=== PATIENT | female | born 1945 | race Caucasian/White ===

== ENCOUNTER → 2017-06-04 | Outpatient (CLI) | payer OTHER ==
[~2017-06-04] MED LIST: ACET-1256 PO; CHOL100010 PO; MULT-513 PO; TAFL1DRO14 OPL; TIMO0.2528 OPL
--- NOTE | 2017-06-05 13:43 | MAMMOGRAPHY REPORT ---
BILATERAL DIGITAL SCREENING MAMMOGRAM TOMOSYNTHESIS WITH CAD: 06/04/2017 CLINICAL HISTORY: Asymptomatic. Personal history of breast cancer. TECHNIQUE: Breast tomosynthesis in addition to standard 2D mammography was performed. Current study was also evaluated with a Computer Aided Detection (CAD) system. COMPARISON: Comparison is made to exams dated: 06/03/2016 mammogram, 05/29/2015 mammogram, 05/23/2014 mammogram, 05/19/2013 mammogram, 05/18/2012 mammogram, and 05/12/2011 mammogram - [facility]. BREAST COMPOSITION: There are scattered areas of fibroglandular density in both breasts. FINDINGS: No suspicious masses, calcifications, or areas of architectural distortion are noted in ei ther breast. There has been no significant interval change compared to prior exams. There are stable post surgical changes in the right upper outer quadrant from prior lumpectomy. A linear scar marker denotes a scar on the right upper outer breast. Bilateral benign-appearing calcifications are not s ignificantly changed. IMPRESSION: ACR BI-RADS CATEGORY 2: BENIGN There is no mammographic evidence of malignancy. A 1 year screening mammogram is recommended. The pa tient will receive written notification of the results. Approximately 10% of breast cancers are not detected with mammography. A negative mammographic report should not delay biopsy if a clinically suggestive mass is present. Hyun Jimenez M.D. ah/:06/04/2017 14:42:14 Foundation Stage Teacher: Kat TONY(Missy)(M), [facility] letter sent: Normal 1/2 BI-RADS Code: ACR BI-RADS Category 2: Benign
== END | disposition home or self-care (01) ==
LOC: C.MAMM 13:57
PROVIDERS: ATTEND Family Medicine
DX: Z12.31 Encounter for screening mammogram for malignant neoplasm of breast (principal)

== ENCOUNTER 2018-09-24 10:18 | Observation (INO) ==
[2018-09-24 11:13] LABS: Basophils # (auto) 0.02 K/uL (0-0.2); Basophils % (auto) 0.3 %; Eosinophils # (auto) 0.02 K/uL (0-0.5); Eosinophils % (auto) 0.3 %; Hematocrit (blood only) 38.4 % (37-47); Hemoglobin 12.4 g/dL (12.0-16.0); Immature Granulocytes # (auto) 0.02 K/uL (0.00-0.02); Immature Granulocytes % (auto) 0.3 %; Lymphocytes # (auto) 1.17 K/uL (1.2-3.4); Lymphocytes % (auto) 15.8 %; Mean Corpuscular Hgb Conc 32.3 g/dL (32-36); Mean Corpuscular Volume 101.1 fL (80-100); Mean Platelet Volume 9.4 fL (7.4-10.4); Monocytes # (auto) 0.69 K/uL (0.11-0.59); Monocytes % (auto) 9.3 %; Platelet Count 364 K/uL (130-400); RDW Standard Deviation 48.1 fL (36.4-46.3); White Blood Count 7.42 K/uL (4.8-10.8)
[2018-09-24 11:19] LABS: Prothrombin Time 10.3 Seconds (9.0-12.0)
[2018-09-24 11:32] LABS: Albumin Level 3.6 gm/dl (3.4-5.0); BUN Creatinine Ratio 12.2 (10-20); Calcium 9.4 mg/dl (8.5-10.1); Creatinine Clr Calc Pharmacy 35.2 ml/min; Est GFR (Non-African American) 41.4; Potassium 3.8 mmol/L (3.5-5.1)
[2018-09-24 11:36] LABS: Albumin Globulin Ratio 0.7 (0.9-2); Bilirubin,Total 0.2 mg/dl (0.2-1); Globulin 4.8 gm/dl (2.5-4.0); Total Protein 8.4 gm/dl (6.4-8.2)
[2018-09-24] MEDS ORDERED: LACTATED RINGER'S 1,000 ML IV SCH (12:00)
--- NOTE | 2018-09-24 14:04 | History & Physical Report ---
Date of Service September 24, 2018 Assessment & Plan (1) Abscess of right genital labia: Discussed with patient findings on exam and need to open and drain. Reviewed marsupialization vs. word catheter vs. both. Given her age of recurrence recommend biopsies of area to make sure there is no cancer. This was not felt to be easily accomplished for her in office today therefore she was sent to ER to plan for OR today. She did eat at 830am and finished at 9am today her cereal with fruit and nuts. She is aware she will remain npo until procedure done but won't be until later today. She signed consent after risks, alternatives and complications reviewed which included but was not limited to bleeding, infection, anesthesia, injury to surrounding structures. OR and anesthesia aware. History of Present Illness Chief Complaint: sent from office with right bartholin gland abscess Primary Care Provider: Juani Alonso MD 73yo G0 with cc as noted above. States 2 days ago saw her pcp for increasingly painful lump of her right vulva. She notes that she had a bartholin gland cyst about 20yrs ago that was lanced in the same spot. Area did not bother her for years but over the past months did notice something coming back but ignored it. She then states in past about 2wks area became larger, more tender such that she had to adjust how she was sitting. Now sitting is more unbearable. Again, went to pcp on Thursday was given antibiotic but was given appointment today with my partner in office and then sent here for treatment. GYNHx: nl mammo 2018, menopause early 50s, no bleeding. OBH: g0 (infertile) PMH: gerd, arthritis, osteopenia, , h/o basal cell cancer, h/o breast cancer( 2009, had surgery, xrt and chemo), glaucoma PSH: right breast lumpectomy, mohs on nose, left eye trabeculectomy Allg: as noted below Meds: none SH: denies tob or street drugs. reports wine 0-1x/day FH: mother with breast cancer. no colon or ovary cancers. Allergies Allergy/AdvReac Type Severity Reaction Status Date / Time estradiol Allergy Severe severe Unverified 09/24/18 12:54 fluid retention Dyazide Allergy Intermediate photosensit Unverified 09/26/14 14:24 ivity hydrochlorothiazide Allergy Intermediate photosensit Unverified 09/24/18 12:54 ivity pegfilgrastim Allergy Intermediate hives Unverified 09/24/18 12:54 triamterene Allergy Intermediate photosensit Unverified 09/24/18 12:54 ivity adhesive Allergy Unknown ` Unverified 09/24/18 12:54 benzalkonium chloride Allergy Unknown ` Unverified 09/24/18 12:54 Ethanol Allergy Severe severe Uncoded 09/24/18 12:54 fluid retention alphagen P Allergy Intermediate drowsiness,blurry Uncoded 09/24/18 12:54 vision,low grade headache Home Medications Home Medications Medication Instructions Recorded Confirmed Type acetaminophen [Tylenol Arthritis 650 mg PO QAM 09/24/18 09/24/18 History Pain] acetaminophen [Tylenol Extra 500 mg PO QAM 09/24/18 09/24/18 History Strength] cholecalciferol (vitamin D3) 5,000 unit PO QAM 09/24/18 09/24/18 History [Vitamin D3] multivitamin with minerals 1 tab PO QAM 09/24/18 09/24/18 History Patient History Medical History Breast cancer (Acute) Social History Feels Safe at Home: Yes Smoking Status: Never smoker Preferred Language: Tamaz[place] Review of Systems notes pain at vulva, hard time sitting. no cp or sob. no abd pain. no vaginal bleeding. Physical Exam 2 Vital Signs (Past 24 Hours): Last Vital Signs Temp 37.2 C 09/24/18 10:31 Pulse 89 09/24/18 13:20 Resp 17 09/24/18 13:20 BP 104/78 09/24/18 13:20 Pulse Ox 92 09/24/18 13:20 Constitutional: WD/WN, vitals as above Respiratory: normal respiratory effort, lungs clear to auscultation Cardiovascular: Rate/Rhythm: regular rate and regular rhythm Neurologic: grossly normal Genitourinary: external genitalia atrophic c/w menopause. right bartholin's gland swollen and tense about 5cm. pointing medially. erythema noted.
[2018-09-24] MEDS ORDERED: fentaNYL citrate 100 MCG/2 ML VIAL ONE (15:38)
[2018-09-24] MEDS ORDERED: DEXAMETHASONE SOD INJ 4 MG/ML VIAL ONE (15:38)
[2018-09-24] MEDS ORDERED: LIDOCAINE HCL 2% 2 ML VIAL/AMP(20MG/ML) INFIL ONE (15:38)
[2018-09-24] MEDS ORDERED: PROPOFOL IV EMULSION 10 MG/ML 20 ML VIAL IV ONE (15:38)
[2018-09-24] MEDS ORDERED: ONDANSETRON INJ 2 MG/ML 2 ML VIAL ONE (15:38)
[2018-09-24] MEDS ORDERED: MIDAZOLAM HCL 1 MG/ML 2ML VIAL ONE (15:38)
--- NOTE | 2018-09-24 15:54 | Anesthesiology Consultation ---
Date of Service September 24, 2018 Assessment & Plan (1) Encounter for pre-operative examination: Chart Review Chart Review: Acceptable Risk for Surgery and Patient NOT seen in Pre Admission Testing Consults Requested none ASA ASA2 Proposed Anesthesia Anesthesia Type: MAC Risk / Benefits Reviewed With: PT / POA / Parent / Guardian, Accepts Plan and Informed Consent Obtained NPO Date Last Intake of Fluids: 09/24/18 Time Last Intake of Fluids: 08:00 Date Last Intake of Solids: 09/24/18 Time Last Intake of Solids: 08:00 History Surgery Operation Date: 09/24/18 09:20 Proposed Procedures p Marsupialization and Biopsy Bartholin Cyst - Isabella Diaz MD, FACOG Height/Weight Height: 5 ft 5 in Weight: 61.6 kg Allergies Allergy/AdvReac Type Severity Reaction Status Date / Time estradiol Allergy Severe severe Unverified 09/24/18 12:54 fluid retention Dyazide Allergy Intermediate photosensit Unverified 09/26/14 14:24 ivity hydrochlorothiazide Allergy Intermediate photosensit Unverified 09/24/18 12:54 ivity pegfilgrastim Allergy Intermediate hives Unverified 09/24/18 12:54 triamterene Allergy Intermediate photosensit Unverified 09/24/18 12:54 ivity adhesive Allergy Unknown ` Unverified 09/24/18 12:54 benzalkonium chloride Allergy Unknown ` Unverified 09/24/18 12:54 Ethanol Allergy Severe severe Uncoded 09/24/18 12:54 fluid retention alphagen P Allergy Intermediate drowsiness,blurry Uncoded 09/24/18 12:54 vision,low grade headache Medications Home Medications Medication Instructions Recorded Confirmed Last Taken acetaminophen [Tylenol Arthritis 650 mg PO QAM 09/24/18 09/24/18 09/24/18 Pain] acetaminophen [Tylenol Extra 500 mg PO QAM 09/24/18 09/24/18 09/24/18 Strength] cholecalciferol (vitamin D3) 5,000 unit PO QAM 09/24/18 09/24/18 09/24/18 [Vitamin D3] multivitamin with minerals 1 tab PO QAM 09/24/18 09/24/18 09/24/18 Active Medications Generic Name Dose Route Start Last Admin Trade Name Freq PRN Reason Stop Dose Admin Lactated Ringer's 1,000 mls @ 125 mls/hr 09/24/18 12:00 09/24/18 12:39 Lr IV 10/24/18 11:59 125 mls/hr .Q8H CHICHI Administration Past Medical History Medical History Abscess of right genital labia (Acute) Breast cancer (Resolved 05/06/10) "Abnormal right breast mammogram Status post biopsy revealing infiltrating ductal carcinoma Status post partial mastectomy and sentinel lymph node biopsy pathologic stage pT1c [id number] Estrogen receptor negative, progesterone receptor negative, HER-2/jessica negative Status post systemic chemotherapy Status post completion of radiation therapy 01/27/2011 received 6120 cGy " DCIS (ductal carcinoma in situ) of breast (Resolved ~03/2010) Breast cancer (Acute) Past Surgical History Surgical History Status post glaucoma surgery (~03/2018) Left eye History of partial mastectomy of right breast SLN Bx [address] Dr[address] Cullen Past Anesthesia History No Hx of Anesthesia Complications History of PONV No Motion Sickness Screening History of Motion Sickness: No Social History Smoking Status: Never smoker Do You Dip or Chew Tobacco: No Hx Alcohol Use: No Hx Substance Use: No Exercise / Class Metabolic Activity II 4-5 Yardwork/Stairs/Walk up hill Negative for chest pain or shortness of breath. Physical Exam Vital Signs Last Vital Signs Temp 36.8 C 09/24/18 15:43 Pulse 88 09/24/18 15:43 Resp 18 09/24/18 15:43 BP 177/94 H 09/24/18 15:43 Pulse Ox 96 09/24/18 15:43 maico on the roof of her mouth Constitutional not obese ENMT Mouth: no TMJ abnormality and oral opening not small Thyromental Distance: > or= 3.5 Finger Breadths Mallampati Class: II Mouth / Teeth: 2 1. Crowns everywhere Neck normal visual inspection; neck extension not limited Respiratory normal respiratory effort Auscultation: lungs clear to auscultation bilaterally Cardiovascular Rate/Rhythm: regular rate and regular rhythm Heart Sounds: no murmur Psychiatric A+Ox3, euthymic affect Orientation: alert and oriented x 3 Testing Electrocardiogram Date: 09/24/18 Findings: + NSR @ (97) Possible Left atrial enlargement Borderline ECG When compared with ECG of 18:57, No significant change was found Laboratory Results 09/24/18 10:55 09/24/18 10:55 PT 10.3 Seconds (9.0-12.0) 09/24/18 10:55 INR 1.0 (0.9-1.1) 09/24/18 10:55
--- NOTE | 2018-09-24 15:56 | Emergency Department Note ---
Entered by Sally Leigh acting as a scribe for Ramone Petty MD ED Provider Note CHIEF COMPLAINT: Doctor Referral HISTORY OF PRESENT ILLNESS: The patient is a 73 year old female who presents to the Emergency Room with complaints of a doctor referral today. The patient states that she follows with Dr. Diaz and that she has an infection in her right groin area. The patient states that her infection has become painful over the last several weeks and states that walking and sitting have become painful. The patient states that she saw Dr. Weathers about an hour ago and told the patient that she needs to have surgery but needed to get testing done prior to surgery. Pt denies LOC, headache, fevers, chills, diaphoresis, visual changes, neck pain , chest pain, breathing difficulties, nausea, vomiting, abdominal pain, back pain, melena, hematochezia, urinary symptoms, numbness, weakness, lymphadenopathy, rash, or other complaints. REVIEW OF SYSTEMS: See HPI for pertinent positives and negatives. A total of ten systems were reviewed and were otherwise negative. PMHx/PSHx: Breast Cancer SOCIAL HISTORY: Patient lives at home. PHYSICAL EXAM: GENERAL: Awake, alert, well-appearing, in no distress HENT: Normocephalic, atraumatic. Oropharynx unremarkable. EYES: Normal conjunctiva. Sclera non-icteric. NECK: Inspection normal. Non-tender. Supple. No nuchal rigidity. FROM. No masses. RESPIRATORY: Clear to auscultation. No wheezes. No rales. Normal respiratory effort. CARDIAC: Normal rate. Normal rhythm. No murmurs. No rubs. Extremities warm and well perfused. Pulses equal. No JVD. GI: Soft, non-distended. No tenderness to palpation. No rebound or guarding. No masses. RECTAL: Deferred. MUSCULOSKELETAL: Atraumatic. Chest examination reveals no tenderness. The back is symmetrical on inspection without obvious abnormality. There is no CVA tenderness to palpation. No joint edema. LOWER EXTREMITIES: Calves are equal size bilaterally and non-tender. No edema. No discoloration. NEURO: Normal sensorium. No sensory or motor deficits noted. SKIN: No rash or jaundice noted. : Abscess of right labia that is tender and red. EMERGENCY DEPARTMENT COURSE: 1113: Past medical records reviewed. The patient was evaluated in room C5, and a complete history and physical examination were performed. 1125: Dr. Diaz was notified and is coming to see the patient. 1230: The patient will be further evaluated by OBGYN in the operative suite. MEDICAL DECISION MAKING: Patient presented to the emergency department from the [facility] office due to a swollen labia with concerns for abscess. Differential includes abscess, cellulitis, necrotizing fasciitis, dermatitis, as well as others. The patient had an unremarkable laboratory panel. ECG was negative. Physical examination reveals a right labial abscess. Clinically the pain doing well at this time. Consultation was placed with Dr. Diaz of [facility]. The patient was evaluated in the admitted for further treatment. IMPRESSION: Right Labial Abscess PLAN: Further evaluation by OBGYN The scribe's documentation has been prepared under my direction and personally reviewed by me in its entirety. I confirm that the note above accurately reflects all work, treatment, procedures, and medical decision making performed by me. Impression & Plan Abscess of right genital labia Past Med/Surg History Medical History Breast cancer (Acute) Social History Current Living Situation: Spouse Feels Safe at Home: Yes Smoking Status: Never smoker Hx Alcohol Use: No Hx Substance Use: No Beliefs That Will Affect Care: None Preferred Language: Yi Results & Data Vital Signs Vital Signs - 24 hr 09/24/18 10:31 09/24/18 11:46 09/24/18 13:20 Temperature 37.2 C Temperature Source Oral Sepsis Recent Fever Within 48 Hours No Sepsis New/Unexplained Change in Mental Status No Sepsis Action Taken by Nursing No Action Required Pulse Rate 99 H Pulse Rate [Finger] 93 H 89 Respiratory Rate 18 17 17 Respiratory Effort / Characteristics Non-Labored Non-Labored Respiratory Depth Normal Normal Respiratory Pattern Regular Regular Blood Pressure 156/70 H Blood Pressure [Left Arm] 147/78 H 104/78 Blood Pressure Mean 98 Blood Pressure Mean [Left Arm] 101 86 Blood Pressure Position Sitting Blood Pressure Position [Left Arm] Sitting Pulse Oximetry 99 97 92 Oxygen Delivery Method Room Air Room Air Room Air 09/24/18 14:38 09/24/18 15:18 09/24/18 15:43 Temperature 36.8 C Temperature Source Oral Sepsis Recent Fever Within 48 Hours Sepsis New/Unexplained Change in Mental Status Sepsis Action Taken by Nursing Pulse Rate 83 Pulse Rate [Finger] 87 88 Respiratory Rate 17 17 18 Respiratory Effort / Characteristics Respiratory Depth Respiratory Pattern Blood Pressure Blood Pressure [Left Arm] 130/75 177/94 H Blood Pressure Mean Blood Pressure Mean [Left Arm] 93 121 Blood Pressure Position Blood Pressure Position [Left Arm] Pulse Oximetry 93 93 96 Oxygen Delivery Method Room Air Room Air Home Medications Current Medication List: was personally reviewed by me Laboratory Data Attestation: I reviewed the patient's lab results. Result diagrams: 09/24/18 10:55 09/24/18 10:55 Lab Results 09/24/18 09/24/18 09/24/18 Range/Units 10:55 10:55 10:55 WBC 7.42 (4.8-10.8) K/uL RBC 3.80 L (4.2-5.4) M/uL Hgb 12.4 (12.0-16.0) g/dL Hct 38.4 (37-47) % MCV 101.1 H (80-100) fL MCH 32.6 (25-34) pg MCHC 32.3 (32-36) g/dL RDW Std Deviation 48.1 H (36.4-46.3) fL RDW Coeff of Alfredo 13.0 (11.5-14.5) % Plt Count 364 (130-400) K/uL MPV 9.4 (7.4-10.4) fL Immature Gran % (Auto) 0.3 % Neut % (Auto) 74.0 % Lymph % (Auto) 15.8 % [place] % (Auto) 9.3 % Eos % (Auto) 0.3 % Baso % (Auto) 0.3 % Immature Gran # (Auto) 0.02 (0.00-0.02) K/uL Neut # (Auto) 5.50 (1.4-6.5) K/uL Lymph # (Auto) 1.17 L (1.2-3.4) K/uL [place] # (Auto) 0.69 H (0.11-0.59) K/uL Eos # (Auto) 0.02 (0-0.5) K/uL Baso # (Auto) 0.02 (0-0.2) K/uL PT 10.3 (9.0-12.0) Seconds INR 1.0 (0.9-1.1) Sodium 136 (136-145) mmol/L Potassium 3.8 (3.5-5.1) mmol/L Chloride 100 (98-107) mmol/L Carbon Dioxide 32 (21-32) mmol/L Anion Gap 5.0 (3-11) BUN 16 (7-18) mg/dl Creatinine 1.28 H (0.6-1.2) mg/dl Est Cr Clr Drug Dosing 35.2 ml/min Est GFR ( Amer) 48.0 Est GFR (Non-Af Amer) 41.4 BUN/Creatinine Ratio 12.2 (10-20) Glucose 83 (70-99) mg/dl Calcium 9.4 (8.5-10.1) mg/dl Total Bilirubin 0.2 (0.2-1) mg/dl AST 18 (15-37) U/L ALT 17 (12-78) U/L Alkaline Phosphatase 97 (45-117) U/L Total Protein 8.4 H (6.4-8.2) gm/dl Albumin 3.6 (3.4-5.0) gm/dl Globulin 4.8 H (2.5-4.0) gm/dl Albumin/Globulin Ratio 0.7 L (0.9-2) Lipase 165 (73-393) U/L Administered Medications Lactated Ringer's (Lr) 1,000 mls @ 125 mls/hr IV .Q8H CHICHI Stop: 10/24/18 11:59 Last Admin: 09/24/18 12:39 Dose: 125 mls/hr ECG Data Attestation: I personally reviewed and interpreted this ECG as follows: Indication: other (pre-operation) Rate (beats per minute): 97 Rhythm: normal sinus Findings: no PAC, no PVC, no ST depression, no ST elevation, no acute ischemic change and no ectopy Blood Pressure Blood Pressure Findings: Elevated blood pressure Additional Comments: further management by OBGYN Discharge Plan Visit Data Chief Complaint: Referred by Doctor Stated Complaint: REFERRED BY DR FLORES Provider: Ramone Petty Discharge Problem: Abscess of right genital labia Patient Disposition: Being Evaluated by Surgeon Discharge Instructions Interventions: ED Discharge Assessment Last Done: 09/24/18 15:18 Forms Stand Alone Forms: [employer] Prescriptions Prescriptions: No Action acetaminophen [Tylenol Extra Strength] 500 mg Tablet 500 mg PO QAM RF: 0 acetaminophen [Tylenol Arthritis Pain] 650 mg Tablet Extended Release 650 mg PO QAM RF: 0 multivitamin with minerals Tablet 1 tab PO QAM RF: 0 cholecalciferol (vitamin D3) [Vitamin D3] 5,000 unit Tablet 5,000 unit PO QAM RF: 0 Referrals Referrals: Juani Alonso MD [Primary Care Provider] - The scribe's documentation has been prepared under my direction and personally reviewed by me in its entirety. I confirm that the note above accurately reflects all work, treatment, procedures, and medical decision making performed by me.
[2018-09-24] MEDS ORDERED: KETAMINE HCL INJ 50 MG/ML 10 ML VIAL ONE (16:25)
[2018-09-24] MEDS ORDERED: ONDANSETRON INJ 2 MG/ML 2 ML VIAL IV PRN ×2 (16:43→16:53)
[2018-09-24] MEDS ORDERED: ACETAMINOPHEN 325 MG TAB PO PRN (16:43)
[2018-09-24] MEDS ORDERED: IBUPROFEN 600 MG TAB PO PRN (16:43)
--- NOTE | 2018-09-24 16:43 | Post Operative Brief Note ---
Immediate Post Op Note v1 Date of Surgery September 24, 2018 Pre & Post Diagnosis Operation Date: 09/24/18 09:20 Pre-Op Diagnosis: Abscess of right genital labia Post-Op Diagnosis: Abscess of right genital labia Procedure Operation Date: 09/24/18 09:20 Actual Procedures p Marsupialization and Biopsy Bartholin Cyst(Right) - Isabella Diaz MD, FACOG Surgeon Isabella Diaz MD, FACOG Gasser Machine Operator Gianfranco KEITH PGY 1 Estimated Blood Loss 1 Findings Consistent with Post-Op Diagnosis (4cm bartholin's gland abscess on right, purulent drainage and persistent palpation of gland. small biopsies taken)
[2018-09-24] MEDS ORDERED: ATROPINE SULFATE 0.1 MG/ML 10ML SYR IV PRN (16:53)
[2018-09-24] MEDS ORDERED: fentaNYL citrate 100 MCG/2 ML VIAL IV PRN (16:53)
[2018-09-24] MEDS ORDERED: ePHEDrine sulfate 50 MG/ML AMP IV PRN (16:53)
[2018-09-24] MEDS ORDERED: ACETAMINOPHEN 1000 MG/100 ML IV IV ONE (17:30)
[2018-09-24] MEDS ORDERED: ACETAMINOPHEN 1,000 MG/100 ML VIAL IV ONE (17:31)
--- NOTE | 2018-09-24 17:32 | Anesthesiology Progress Note ---
Date of Service September 24, 2018 Anesthesia Post Procedure Vital Signs Vital Signs: Temp Pulse Pulse Pulse Resp BP BP 09/24/18 17:20 96 H 26 H 155/80 H 09/24/18 17:10 93 H 21 161/90 H 09/24/18 17:00 101 H 27 H 167/91 H 09/24/18 16:51 36.8 C 100 H 15 195/112 H 09/24/18 15:43 36.8 C 88 18 177/94 H 09/24/18 15:18 83 17 09/24/18 14:38 87 17 130/75 09/24/18 13:20 89 17 104/78 09/24/18 11:46 93 H 17 147/78 H 09/24/18 10:31 37.2 C 99 H 18 156/70 H Pulse Ox 09/24/18 17:20 94 09/24/18 17:10 98 09/24/18 17:00 99 09/24/18 16:51 99 09/24/18 15:43 96 09/24/18 15:18 93 09/24/18 14:38 93 09/24/18 13:20 92 09/24/18 11:46 97 09/24/18 10:31 99 Pain Intensity Vaginal: Pain Intensity: 6 Notes Mental Status: alert / awake / arousable and participated in evaluation Nausea / Vomiting: adequately controlled Pain: improving with treatment Airway Patency, RR, SpO2: stable & adequate BP & HR: stable & adequate Hydration State: stable & adequate Anesthetic Complications: no major complications apparent and Pt Satisfied with anesthetic care
--- NOTE | 2018-09-24 19:30 | Operative Report ---
DATE OF OPERATION: 09/24/2018 PREOPERATIVE DIAGNOSIS: Right Bartholin's gland abscess. POSTOPERATIVE DIAGNOSIS: Right Bartholin's gland abscess. PROCEDURES: 1. Marsupialization of Bartholin's gland with drainage of abscess. 2. Bartholin's gland biopsies. SURGEON: Dr. Isabella Diaz. MEDICAL EQUIPMENT REPAIR TECHNICIAN: Dr. Medel, PGY 1. ANESTHESIA: IV sedation. FINDINGS: Approximately 4-5 cm enlarged tense and erythematous right Bartholin' s gland that was pointing in the medial aspect. Large amount of pus drainage with incision. More dense tissue in the gland area that was biopsied as well as tissue extrusion that was also sampled and sent for pathology. INDICATIONS: A 73-year-old presented to the office with Bartholin's abscess who could not tolerate office drainage and biopsies and therefore was sent to the Emergency Room and then to the OR as noted. Please see the history and physical for more details. PROCEDURE DESCRIPTION: The patient was taken to the operating room and identified. Adequate sedation was administered. She was placed in the dorsal lithotomy position and prepped and draped in the usual sterile fashion. The gland was identified and incised over the pointing opening in a cruciate fashion. Large amounts of pus extruded. The corners of the incision site were tacked backward using 3-0 Vicryl to make a larger opening. The opening was prodded for a tissue sample and then a biopsy device was used to sample the gland deeper. There was no evidence of active bleeding. At this point, the procedure was terminated. The patient was returned to the supine position. She was awoken from anesthesia and transferred to the recovery room in stable condition. All sponge, lap, needle counts were correct x2. I attest to the content of the Intraoperative Record and any orders documented therein. Any exceptions are noted below. MTDD
--- NOTE | 2018-09-26 19:55 | Discharge Summary ---
Date of Service September 26, 2018 Admission HPI Per Admitting Provider 73yo G0 with cc as noted above. States 2 days ago saw her pcp for increasingly painful lump of her right vulva. She notes that she had a bartholin gland cyst about 20yrs ago that was lanced in the same spot. Area did not bother her for years but over the past months did notice something coming back but ignored it. She then states in past about 2wks area became larger, more tender such that she had to adjust how she was sitting. Now sitting is more unbearable. Again, went to pcp on Thursday was given antibiotic but was given appointment today with my partner in office and then sent here for treatment. GYNHx: nl mammo 2018, menopause early 50s, no bleeding. OBH: g0 (infertile) PMH: gerd, arthritis, osteopenia, , h/o basal cell cancer, h/o breast cancer( 2009, had surgery, xrt and chemo), glaucoma PSH: right breast lumpectomy, mohs on nose, left eye trabeculectomy Allg: as noted below Meds: none SH: denies tob or street drugs. reports wine 0-1x/day FH: mother with breast cancer. no colon or ovary cancers. Admission Exam (Per Admitting) Genitourinary right bartholin's gland abscess with pointing Discharge Data Consultations 09/24/18 14:55 ED Decision to Admit Stat Procedures Performed Operation Date: 09/24/18 09:20 Actual Procedures p Marsupialization and Biopsy Bartholin Cyst(Right) - Isabella Diaz MD, FACOG Hospital Course (1) Abscess of right genital labia: pt had procedure as noted. was never admitted. she was an outpt surgery and went home after recovery. Discharge Instructions see d/c instructions template
== END 2018-09-24 19:15 | disposition home or self-care (01) ==
LOC: ED 10:18 → OR 15:18 → 4N 15:18